=== PATIENT | female | born 1940 | race Caucasian/White ===

== ENCOUNTER 2017-12-15 09:41 | Emergency (ER) | payer MEDICARE ==
[~2017-12-15] VITALS: Ht 162.6 cm; Wt 106.0 kg
[~2017-12-15 09:41] MED LIST: CHEL50TA PO; COZA100T PO; FURO20 PO; GABA300C3 PO; HYDR-3129 PO; K-TA10TA5 PO; PERC5TAB12 PO; PROV5TAB PO
[2017-12-15 09:46] VITALS: BP 141/60; PULSE 74; RESP 17; TEMP 98.2; O2SAT 94
[2017-12-15] MEDS ORDERED: ATOR20TA15 PO (10:47)
[2017-12-15] MEDS ORDERED: DOCU100C15 PO (10:47)
[2017-12-15] MEDS ORDERED: ASPI81TA23 PO (10:47)
[2017-12-15] MEDS ORDERED: IPRASOL INH (10:47)
[2017-12-15] MEDS ORDERED: COZA100T PO (10:47)
[2017-12-15] MEDS ORDERED: FAMO20TA2 PO (10:47)
[2017-12-15] MEDS ORDERED: DULO1CAP3 PO (10:47)
[2017-12-15] MEDS ORDERED: BUME2TAB PO (10:47)
[2017-12-15] MEDS ORDERED: CLON0.1T PO (10:47)
[2017-12-15] MEDS ORDERED: GABA300C5 PO (10:47)
[2017-12-15] MEDS ORDERED: B-12100T PO (10:47)
[2017-12-15] MEDS ORDERED: HYDR-3516 PO (10:48)
[2017-12-15] MEDS ORDERED: POTA10CA PO (10:48)
[2017-12-15] MEDS ORDERED: OXYC-395 PO (10:48)
[2017-12-15] MEDS ORDERED: ZOFR4TAB3 SL (10:49)
--- NOTE | 2017-12-15 11:33 | RADRPT ---
EXAM DATE: 12/15/2017 11:23 AM EDT AGE/SEX: 77 years / Female INDICATIONS: Patient fell hitting head on tile floor, head and neck pain. CLINICAL DATA: This is the patient's initial encounter. Patient reports that signs and symptoms have been present for 1 day and indicates a pain score of 5/10. MEDICAL/SURGICAL HISTORY: Congestive heart failure. Hypertension. Appendectomy. RADIATION DOSE: 43.92 CTDI (mGy) COMPARISON: No prior exams available for comparison. TECHNIQUE: CT of the head without contrast. Using automated exposure control and adjustment of the mA and/or kV according to patient size, radiation dose was kept as low as reasonably achievable to ob tain optimal diagnostic quality images. FINDINGS: There is central and cortical atrophy with dilatation of ventricular and sulcal spaces. There is no parenchymal hemorrhage, acute infarction or mass lesion identified. There are no extra-axial fluid c ollections appreciated. Periventricular white matter changes are noted. The posterior fossa is unrem arkable with midline fourth ventricle. The portion of the orbits and paranasal sinuses visualized are unremarkable. CONCLUSION: Atrophy, otherwise negative for an acute process. Jonathan Magana MD FACR Electronically signed by: Jonathan Magana MD 12/15/2017 11:31 AM EDT
--- NOTE | 2017-12-15 11:37 | PD ---
HPI Chief Complaint: Fall Time Seen by Provider: 11:00 Travel History International Travel<30 days: No Contact w/Intl Traveler<30days: No Traveled to known affect area: No History of Present Illness HPI 77-year-old female with history of COPD, osteoarthritis, presents emergency department for evaluation following a fall. Patient states she is leaning over on her table to grab something when the table rolled out from under her. She fell, striking her head. She did not lose consciousness. Patient was able to get back up with assistance. She reports significant neck pain. She denies any focal deficits or weakness. She denies any other symptoms at this time. PFSH Past Medical History Blood Disorders: No Anxiety: No Depression: Yes Cancer: No Cardiovascular Problems: No High Cholesterol: Yes Congestive Heart Failure: Yes COPD: Yes Diabetes: No Endocrine: No GERD: Yes Glaucoma: No Genitourinary: No Hepatitis: No Hiatal Hernia: No Hypertension: Yes Immune Disorder: No Medical other: No Musculoskeletal: Yes (ARTHRITIS) Neurologic: No Psychiatric: No Reproductive: No Respiratory: No Thyroid Disease: No ?: Not Past Surgical History Abdominal Surgery: Yes (APPENDECTOMY) AICD: No Body Medical Devices: LUMBAR HARDWARE Cardiac Surgery: No Endocrine Surgery: No Eye Surgery: Yes (ROCCO CATARACT EXTRACTION WITH LENS IMPLANTS ) Gynecologic Surgery: Yes (BLADDER SUSP) Joint Replacement: No Neurologic Surgery: Yes (LUMBAR LAMINECTOMY 1983; SPINAL FUSION 2013 ) Oral Surgery: Yes (T & A) Pacemaker: No Thoracic Surgery: No Other Surgery: Yes Social History Alcohol Use: Yes (RARELY) Tobacco Use: No Substance Use: No Allergies-Medications (Allergen,Severity, Reaction): Coded Allergies: No Known Allergies (Verified Adverse Reaction, Unknown, 12/15/17) Reported Meds & Prescriptions Reported Meds & Active Scripts Active Reported Zofran Odt (Ondansetron Odt) 4 Mg Tab 4 Mg SL Q8HR PRN Potassium Chloride ER (Potassium Chloride) 10 Meq Cap 20 Meq PO DAILY Oxycodone (Oxycodone HCl) 10 Mg Tab 10 Mg PO Q12HR PRN Hydrocodone-Acetaminophen 5-325 mg Tab 1 Tab PO Q6H PRN Gabapentin 300 Mg Cap 300 Mg PO DAILY Famotidine 20 Mg Tab 20 Mg PO BID Duoneb (Ipratropium-Albuterol Neb) 0.5-2.5 Mg/3 Ml Neb 1 Nebule INH Q6HR NEB Duloxetine DR (Duloxetine HCl) 60 Mg Capdr 60 Mg PO DAILY Docusate Sodium 100 Mg Cap 100 Mg PO BID B-12 (Cyanocobalamin) 100 Mcg Tab 100 Mcg PO DAILY Cozaar (Losartan Potassium) 100 Mg Tab 100 Mg PO DAILY Clonidine (Clonidine HCl) 0.1 Mg Tab 0.1 Mg PO Q8HR Bumetanide 2 Mg Tab 4 Mg PO BID Atorvastatin (Atorvastatin Calcium) 20 Mg Tab 20 Mg PO HS Aspirin EC (Aspirin) 81 Mg Tabdr 81 Mg PO DAILY Review of Systems Except as stated in HPI: all other systems reviewed are Neg Physical Exam Narrative GENERAL: Well-nourished female patient, no acute distress SKIN: Focused skin assessment warm/dry. HEAD: Left frontal scalp. EYES: Pupils equal and round. No scleral icterus. No injection or drainage. ENT: No nasal bleeding or discharge. Mucous membranes pink and moist. NECK: Trachea midline. No JVD. Cervical collar is in place. CARDIOVASCULAR: Regular rate and rhythm. 2/6 systolic murmur appreciated. RESPIRATORY: No accessory muscle use. Diminished bases to auscultation. Breath sounds equal bilaterally. GASTROINTESTINAL: Abdomen soft, non-tender, nondistended. Hepatic and splenic margins not palpable. MUSCULOSKELETAL: No obvious deformities. No clubbing. No cyanosis. No edema. NEUROLOGICAL: Awake and alert. No obvious cranial nerve deficits. Motor grossly within normal limits. Normal speech. PSYCHIATRIC: Appropriate mood and affect; insight and judgment normal. Data Data Last Documented VS Vital Signs Date Time Temp Pulse Resp B/P (MAP) Pulse Ox O2 Delivery O2 Flow Rate FiO2 12/15/17 09:46 98.2 74 17 141/60 (87) [address] Brain W/O Iv Contrast(Rout) (12/15/17 10:16) Ct Cerv Spine W/O Contrast (12/15/17 10:16) Oxycodone-Acetamin 5-325 Mg (Percocet (12/15/17 12:45) Ondansetron Odt (Zofran Odt) (12/15/17 12:45) MDM Medical Decision Making Medical Screen Exam Complete: Yes Emergency Medical Condition: Yes Medical Record Reviewed: Yes Differential Diagnosis Minor head injury versus cervical strain versus discogenic pain versus fracture versus intracranial hemorrhage Narrative Course 77-year-old female presents to the emergency department for evaluation following a fall. Patient appears without distress. She does have hematoma on the left frontal scalp. She has no focal deficits or weakness. CT imaging the brain and CT imaging and cervical spine are without acute abnormality. Patient is treated for pain. Cervical collar is removed. She is encouraged to follow- up with a primary care provider and return immediately with acute worsening of symptoms. Diagnosis Primary Impression: Minor head injury without loss of consciousness Qualified Codes: S09.90XA - Unspecified injury of head, initial encounter Additional Impression: Cervical strain, acute Qualified Codes: S16.1XXA - Strain of muscle, fascia and tendon at neck level , initial encounter Referrals: Primary Care Physician Patient Instructions: Cervical Strain (ED), General Instructions, Head Injury ( ED) Additional Instructions: Tylenol or ibuprofen as directed on the package as needed for pain Follow-up the primary care provider Return immediately with acute worsening symptoms Med/Other Pt SpecificInfo: No Change to Meds Disposition: 01 DISCHARGE HOME Condition: Stable Megha Dickey Dec 15, 2017 11:37
[2017-12-15] MEDS ORDERED: oxyCODONE/ACETAMINOPHEN 5 MG/325 MG TAB PO ONE (12:45)
[2017-12-15] MEDS ORDERED: ONDANSETRON ODT 4 MG TAB PO ONE (12:45)
--- NOTE | 2017-12-15 13:39 | RADRPT ---
EXAM DATE: 12/15/2017 11:25 AM EDT AGE/SEX: 77 years / Female INDICATIONS: Patient fell hit head on tile floor, head and neck pain. CLINICAL DATA: This is the patient's initial encounter. Patient reports that signs and symptoms have been present for 1 day and indicates a pain score of 5/10. MEDICAL/SURGICAL HISTORY: Congestive heart failure. Hypertension. Appendectomy. RADIATION DOSE: 28.53 CTDI (mGy) COMPARISON: No prior exams available for comparison. TECHNIQUE: Contiguous axial images were obtained using helical multirow detector technique. The vol umetric data was post-processed with multiplanar reconstruction in oblique axial, sagittal, and coron al planes. Using automated exposure control and adjustment of the mA and/or kV according to patient s ize, radiation dose was kept as low as reasonably achievable to obtain optimal diagnostic quality lance ges. FINDINGS: Vertebrae: Normal vertebral body height. Extensive degenerative changes are seen at the skull base C 1 articulation. Alignment: Normal. No subluxation. C2-3: Moderate uncinate ridging is present moderate left-sided neural foraminal encroachment C3-4: Moderate uncinate ridging present with bilateral neural foraminal encroachment. Spinal stenosi s is moderate. Neural foraminal encroachment is significant. C4-5: Significant spinal stenosis uncinate ridging and significant bilateral neural foraminal encroa chment worse on the right. C5-6: Moderate uncinate ridging present with moderate spinal stenosis and bilateral neural foraminal encroachment worse in the right. 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 C6-7: Moderate uncinate ridging present with mild stenosis and bilateral neural foraminal encroachme nt. C7-T1: The bony spinal canal is normal in size. No evidence of disc bulge or herniation. The neura l foramina are bilaterally patent. CONCLUSION: 1. Extensive degenerative changes. With spinal stenosis or neural foraminal encroachment. Electronically signed by: Jonathan Magana MD 12/15/2017 1:38 PM EDT
== END 2017-12-15 18:08 | disposition home or self-care (01) ==
LOC: NEPC 09:41 → NEDAMB 18:08
DX: S09.90XA Unspecified injury of head, initial encounter (principal); S16.1XXA Strain of muscle, fascia and tendon at neck level, initial encounter; E78.00 Pure hypercholesterolemia, unspecified; I11.0 Hypertensive heart disease with heart failure; I50.9 Heart failure, unspecified; W08.XXXA Fall from other furniture, initial encounter
CPT/HCPCS: 70450; 72125; 99283